=== PATIENT | male | born 1960 | race Native Hawaiian/Other Pacific Islander ===

== ENCOUNTER 2016-11-13 15:27 | Emergency (ER) | payer OTHER ==
[~2016-11-13] VITALS: Ht 180.3 cm; Wt 77.1 kg
[2016-11-13 15:45] VITALS: BP 179/79; TEMP 97.9
[2016-11-13 16:30] LABS: PLATELET COUNT 298 K/uL (142-355)
[2016-11-13 16:35] LABS: POTASSIUM 3.9 mmol/L (3.6-5.2); SODIUM 140 mmol/L (136-145)
== END 2016-11-13 17:42 | disposition home or self-care (01) ==
LOC: ED 15:27
DX: N20.1 Calculus of ureter (principal); K52.9 Noninfective gastroenteritis and colitis, unspecified
CPT/HCPCS: 80053; 85027; 96360; 99284; J1885; J2405